=== PATIENT | female | born 1990 | race Caucasian/White ===

== ENCOUNTER → 2020-05-21 10:18 | Outpatient (CLI) | payer BC, SELFPAY ==
--- NOTE | ~2020-05-21 | XR_ITS ---
EXAMINATION: XR chest 2V DATE: 05/21/2020 10:43 INDICATION: Asthma. TECHNIQUE: Frontal and lateral views of the chest were obtained. COMPARISON: None. FINDINGS: The chest demonstrates clear lungs without pneumonia, pleural effusion, or pneumothorax. Th e heart size is normal. IMPRESSION: 1. No acute cardiopulmonary disease. Reviewed, dictated and finalized at location A.
== END ==
PROVIDERS: PCP Family Medicine
DX: J45.50 Severe persistent asthma, uncomplicated (principal)
CPT/HCPCS: 71046

== ENCOUNTER 2023-03-15 18:40 | Emergency (ER) | payer BC, SELFPAY ==
--- NOTE | ~2023-03-15 | XR_ITS ---
EXAMINATION: XR finger 3rd LT min 2V DATE: 03/15/2023 19:17 INDICATION: Softball injury to the left third digit TECHNIQUE: Dorsal palmar, lateral and oblique views of the left third digit were obtained COMPARISON: None FINDINGS: Bone alignment is normal. No fracture. Joint spaces are normal. Mild soft tissue swelling at the ulna r side of the third proximal interphalangeal joint. IMPRESSION: 1. No osseous abnormality. Reviewed, dictated and finalized at location A. IMPRESSION: 1. No osseous abnormality.
[2023-03-15 18:55] VITALS: BP 137/74; PULSE 90; RESP 18; TEMP 36.9; O2SAT 99
--- NOTE | 2023-03-15 18:57 | ED.UPPEXIN ---
HPI - Extremity Injury (Upper) General Chief Complaint: Extremity Injury, Upper Stated Complaint: Left Hand Pain Time Seen by Provider: 03/15/23 19:20 Source: patient and RN notes reviewed Mode of arrival: ambulatory Limitations: no limitations History of Present Illness HPI narrative: 32-year-old female presents with concern for pain to the 3rd digit of the left hand. She denies any known injury or trauma. She reports she does play softball in she uses that hand to catch inside of her glove. She reports the pain is in the a.m. I see joint and it is painful to bend. She reports an occasional sharp shooting pain and tingling to the tip of the digit. She reports she has been using ibuprofen and ice without relief. 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 SKIN: Denies rash or itching, open skin, laceration, abrasion, redness, warmth, swelling. MUSCULOSKELETAL: Reports pain in the 3rd digit of the left hand NEUROLOGIC: Denies numbness, weakness All systems reviewed & are unremarkable except as noted in HPI and below PMFSH Comments At time of signature, agree with nursing past medical, surgical, social and family history. There is no relevant family history pertinent to the presenting complaint Exam Narrative: GENERAL: Well-appearing, well-nourished, and in no acute distress. HEAD: Normocephalic EYES: PERRLA, conjunctivae clear NECK: Supple. CHEST: Speaks in full sentences. No respiratory distress. HEART: Regular rate and rhythm. Normal and equal peripheral pulses. EXTREMITIES: 3rd digit of left hand has grossly normal strength and sensation. 5/5 strength with digit flexion, extension. Range of motion gross normal. MIP tenderness. Skin intact. Normal digital cascade with flexion of fingers, median, ulnar and radial nerve intact. Can perform 'okay' sign, 'cross over finger test of index and middle fingers' and 'thumbs up' sign. No scissoring. Normal thumb opposition. Good capillary refill and radial pulse. Distal capillary refill less than 3 seconds. SKIN: Warn, dry, intact, pink. No rash NEURO: Alert and oriented x3. PSYCH: Normal mood and affect Course Course Emergency Course: Patient is aware of diagnosis, understands and agrees to treatment plan. Anticipatory guidance given. Patient agrees to follow-up as directed and is aware of reasons to seek care at the emergency department. Portions of this record may have been created with voice recognition software Level of Care: Express Care Visit Vital Signs Vital signs: Vital Signs Temperature 98.4 F 03/15/23 18:55 Pulse Rate 90 03/15/23 18:55 Respiratory Rate 18 03/15/23 18:55 Blood Pressure 137/74 03/15/23 18:55 Pulse Oximetry 99 03/15/23 18:55 Oxygen Delivery Room Air 03/15/23 18:55 Temperature 98.4 F 03/15/23 18:55 Pulse Rate 90 03/15/23 18:55 Respiratory Rate 18 03/15/23 18:55 Blood Pressure 137/74 03/15/23 18:55 Pulse Oximetry 99 03/15/23 18:55 Oxygen Delivery Room Air 03/15/23 18:55 Reviewed. MDM - Extremity Injury (Upper) MDM Narrative Medical decision making narrative: Patients pain is consistent with musculoskeletal etiology. No signs of neurological or vascular compromise on exam. Compartments and tissues are soft without signs of compartment syndrome. Pain is felt appropriate for further evaluation on an outpatient basis. Imaging Data My impr
== END 2023-03-15 19:38 | disposition home or self-care (01) ==
PROVIDERS: Emergency Provider Nurse Practitioner; PCP Family Medicine
DX: M79.645 Pain in left finger(s) (principal)
CPT/HCPCS: 29130; 73140; 99213; G0463

== ENCOUNTER 2023-03-22 10:50 | Emergency (ER) | payer BC, SELFPAY ==
--- NOTE | 2023-03-22 10:58 | ED.URI ---
HPI - URI/Sore Throat General Chief Complaint: Upper Respiratory Infection Stated Complaint: Sore Throat and Drainage Time Seen by Provider: 03/22/23 11:42 Source: patient and RN notes reviewed Mode of arrival: ambulatory Limitations: no limitations History of Present Illness HPI Narrative: 32-year-old female presents concern for 2-3 day history of sneezing, nasal drainage, ear pain. Woke up this morning with a sore throat. She reports she does spots some DayQuil but has not taken any yet. She denies fever, aches, chills, sweats, trouble breathing MD elicited complaint: sore throat Related Data Home Medications Medication Instructions Recorded Confirmed cetirizine 10 mg tablet mg 03/15/23 famotidine 40 mg tablet mg 03/15/23 montelukast 10 mg tablet mg 03/15/23 omeprazole 20 mg capsule,delayed mg 03/15/23 release fluticasone fur. 100 mcg-umeclid inhalation 03/22/23 62.5 mcg-vilant 25 mcg inhalat.powder (Trelegy Ellipta) Allergies Allergy/AdvReac Type Severity Reaction Status Date / Time cefaclor [From [facility]] Allergy Rash Verified 03/22/23 11:26 Penicillins Allergy Rash Verified 03/22/23 11:26 Review of Systems Review of Systems: CONSTITUTIONAL: Denies malaise, chills, sweats, or fever. EYES: Denies visual changes, redness, or discharge. ENT: Reports rhinorrhea, congestion, otalgia and sore throat. CARDIOVASCULAR: Denies chest pain, palpitations, or edema. RESPIRATORY: Denies cough. Denies dyspnea. GASTROINTESTINAL: Denies abdominal pain, nausea, vomiting, diarrhea SKIN: Denies rash or itching. MUSCULOSKELETAL: Denies myalgia. NEUROLOGIC: Denies headache. All systems reviewed & are unremarkable except as noted in HPI and below PMFSH Comments At time of signature, agree with nursing past medical, surgical, social and family history. There is no relevant family history pertinent to the presenting complaint Exam Narrative: GENERAL: Well-appearing, well-nourished, and in no acute distress. HEAD: Normocephalic EYES: PERRLA, conjunctivae clear ENT: Nares clear, clear discharge. Mucous membranes moist. TM pearly drummond with sharp light reflex bilaterally; no tragal tenderness. Oropharynx not erythematous without lesions. Tonsils not enlarged and without exudate, no drooling, no hoarseness, no trismus, uvula midline. NECK: Supple. No lymphadenopathy CHEST: Clear to auscultation, breath sounds equal. No wheezing, rhonchi, rales, or stridor. No respiratory distress, speaks in full sentences. HEART: Regular rate and rhythm. No murmur heard. SKIN: Warm, dry, no rash. NEURO: Alert and oriented x3. PSYCH: Normal mood and affect Course Course Emergency Course: Patient is aware of diagnosis, understands and agrees to treatment plan. Anticipatory guidance given. Patient agrees to follow-up as directed and is aware of reasons to seek care at the emergency department. Portions of this record may have been created with voice recognition software Level of Care: Express Care Visit Vital Signs Vital signs: Vital Signs Temperature 98.7 F 03/22/23 11:03 Pulse Rate 79 03/22/23 11:03 Respiratory Rate 16 03/22/23 11:03 Blood Pressure 120/66 03/22/23 11:03 Pulse Oximetry 100 03/22/23 11:03 Oxygen Delivery Room Air 03/22/23 11:03 Temperature 98.7 F 03/22/23 11:03 Pulse Rate 79 03/22/23 11:03 Respiratory Rate 16 03/22/23 11:03 Blood Pressure 120/66 03/22/23 11:03 Pulse Oximetry 100 03/22/23 11:03 Oxygen Delivery Room Air 03/22/23 11:03 Reviewed. MDM - URI/Sore Throat MDM Narrative Medical decision making narrative: Differential diagnosis considered: Shine virus, strep pharyngitis, allergic rhinitis, upper respiratory tract infection, sinusitis, rhinosinusitis, nasopharyngitis. viral pharyngitis, otitis media, otitis externa, pneumonia, bronchitis, viral cough syndrome, viral syndrome, and influenza. Exam findings show no acute concerns or changes; patien
[2023-03-22 11:03] VITALS: BP 120/66; PULSE 79; RESP 16; TEMP 37.1; O2SAT 100
== END 2023-03-22 12:04 | disposition home or self-care (01) ==
PROVIDERS: Emergency Provider Nurse Practitioner; PCP Family Medicine
DX: J06.9 Acute upper respiratory infection, unspecified (principal); K21.9 Gastro-esophageal reflux disease without esophagitis
CPT/HCPCS: 87081; 87426; 87804; 87880; 99213; C9803; G0463

== ENCOUNTER 2023-05-04 15:47 | Emergency (ER) | payer BC, SELFPAY ==
[2023-05-04 15:58] VITALS: BP 112/72; PULSE 87; RESP 16; TEMP 37.1; O2SAT 100
--- NOTE | 2023-05-04 16:33 | ED.URI ---
HPI - URI/Sore Throat General Chief Complaint: Upper Respiratory Infection Stated Complaint: stiff neck,swollen throat Time Seen by Provider: 05/04/23 16:23 Source: patient and RN notes reviewed Mode of arrival: ambulatory Limitations: no limitations History of Present Illness HPI Narrative: Patient presents today complaining of a 2 day history of body aches, fatigue, congestion, body aches, neck stiffness. She has been taking DayQuil, NyQuil, Tylenol, and allergy pills without relief. Denies sore throat or cough. States 1 of her children is at home sick as well. Related Data Home Medications Medication Instructions Recorded Confirmed cetirizine 10 mg tablet 10 mg DIRECTED 03/15/23 05/04/23 famotidine 40 mg tablet 40 mg DIRECTED 03/15/23 05/04/23 montelukast 10 mg tablet 10 mg DIRECTED 03/15/23 05/04/23 omeprazole 20 mg capsule,delayed 20 mg DIRECTED 03/15/23 05/04/23 release fluticasone fur. 100 mcg-umeclid 1 inh inhalation DIRECTED 03/22/23 05/04/23 62.5 mcg-vilant 25 mcg inhalat.powder (Trelegy Ellipta) loratadine 10 mg tablet (Claritin) 10 mg PO DAILY 05/04/23 05/04/23 Allergies Allergy/AdvReac Type Severity Reaction Status Date / Time cefaclor [From [facility]] Allergy Rash Verified 03/22/23 11:26 Penicillins Allergy Rash Verified 03/22/23 11:26 Review of Systems Review of Systems: CONSTITUTIONAL: Denies fever, chills, or sweats.+ body aches, fatigue EYES: Denies visual changes, redness, or discharge. ENT: Denies rhinorrhea, sore throat, or otalgia.+ congestion, postnasal drip, neck stiffness CARDIOVASCULAR: Denies chest pain, palpitations, or edema. RESPIRATORY: Denies cough or dyspnea. GASTROINTESTINAL: Denies abdominal pain, nausea, vomiting, or diarrhea. GENITOURINARY: Denies dysuria or hematuria. SKIN: Denies rash, itching, or wounds. MUSCULOSKELETAL: Denies back pain, joint pain, or myalgia. NEUROLOGIC: Denies headache, numbness, tingling, or weakness. PSYCH: Denies depression or anxiety. PMFSH Comments At time of signature, I have reviewed and agree with nursing past medical, surgical, social and family history unless otherwise noted. Please see nursing chart for further information. There is no relevant family history pertinent to the presenting complaint Exam Narrative: GENERAL: Mildly ill-appearing, well-nourished, and in no acute distress. HEAD: Normocephalic, atraumatic. EYES: EOMI. No redness or drainage. Conjunctivae normal. ENT: Mucous membranes pink and moist. Nares congested with rhinorrhea. TMs normal bilaterally. Throat normal. Uvula midline. NECK: Normal AROM. Supple. No lymphadenopathy. CHEST: No respiratory distress. Clear to auscultation. HEART: Regular rate and rhythm. No murmur appreciated. Normal peripheral pulses. EXTREMITIES: Normal range of motion. No edema. SKIN: Warm, dry, no rash. Capillary refill normal. Normal skin turgor. NEURO: No focal deficits. Alert and oriented x3. Gait steady. PSYCH: Normal affect. No signs of depression or anxiety. Course Course Level of Care: Express Care Visit Vital Signs Vital signs: Vital Signs Temperature 98.7 F 05/04/23 15:58 Pulse Rate 87 05/04/23 15:58 Respiratory Rate 16 05/04/23 15:58 Blood Pressure 112/72 05/04/23 15:58 Pulse Oximetry 100 05/04/23 15:58 Oxygen Delivery Room Air 05/04/23 15:58 Temperature 98.7 F 05/04/23 15:58 Pulse Rate 87 05/04/23 15:58 Respiratory Rate 16 05/04/23 15:58 Blood Pressure 112/72 05/04/23 15:58 Pulse Oximetry 100 05/04/23 15:58 Oxygen Delivery Room Air 05/04/23 15:58 Reviewed MDM - URI/Sore Throat MDM Narrative Medical decision making narrative: All testing negative. Symptoms likely viral in etiology. Anticipatory guidance given. No prescription medications indicated at this time. Differential Diagnosis Differential diagnosis: Likely upper respiratory infection, sinusitis, viral infection, influenza
== END 2023-05-04 16:42 | disposition home or self-care (01) ==
PROVIDERS: Emergency Provider Nurse Practitioner; PCP Family Medicine
DX: B34.9 Viral infection, unspecified (principal); Z20.822 Contact with and (suspected) exposure to COVID-19; J45.909 Unspecified asthma, uncomplicated; K21.9 Gastro-esophageal reflux disease without esophagitis
CPT/HCPCS: 87081; 87426; 87804; 87880; 99213; C9803; G0463